=== PATIENT | male | born 1960 | race African-American/Black ===

== ENCOUNTER 2017-07-16 10:04 | Inpatient (IN) | payer SELFPAY ==
[~2017-07-16] VITALS: Ht 188 cm; Wt 95.3 kg
[2017-07-16] MEDS ORDERED: INSULIN REGULAR (HUMULIN R) 300UNITS/3ML IV ONE ×3 (12:15→17:00)
[2017-07-16] MEDS ORDERED: SODIUM CHLORIDE 0.9% 2,000 ML IV ONE (12:15)
[2017-07-16 12:45] LABS: BASOPHILS % 0.4 % (0.0-2.0); EOSINOPHILS % 0.7 % (0.0-5.0); HEMATOCRIT. 42.1 % (42.0-52.0); HEMOGLOBIN. 14.4 g/dL (14.0-18.0); LYMPHOCYTES % 16.2 % (20.0-50.0); MEAN CORPUSCULAR HEMOGLOBIN 27.8 pg (28.0-32.0); MEAN CORPUSCULAR VOLUME 81.4 fL (80.0-94.0); MEAN PLATELET VOLUME 8.3 fl (7.4-10.4); MONOCYTES % 5.8 % (2.0-8.0); NEUTROPHILS % 76.9 % (40.0-76.0); PLATELET 259 x1000/uL (130-400); RED BLOOD CELL COUNT 5.18 mill/uL (4.7-6.1); RED CELL DISTRIBUTION WIDTH 13.2 % (11.6-14.6)
[2017-07-16 13:03] LABS: CARBON DIOXIDE 31 mEq/L (21-32); CHLORIDE 95 mEq/L (98-107)
[2017-07-16] MEDS ORDERED: LORAZEPAM 2MG/ML CPJ IV ONE (17:00)
[2017-07-16] MEDS ORDERED: SODIUM CHLORIDE 0.9% 1,000 ML IV ONE (17:00)
[2017-07-16] MEDS ORDERED: METFORMIN HCL 500MG TABLET PO ONE (17:00)
[2017-07-16 18:21] LABS: TROPONIN I 0.06 ng/mL (0.00-0.04)
[2017-07-16] MEDS ORDERED: DIPHENHYDRAMINE 50MG/ML VIAL IV PRN (19:00)
[2017-07-16] MEDS ORDERED: MAGNESIUM/ALUMINUM HYDROXIDE/SIMETHICONE 30ML UDC PO PRN (19:00)
[2017-07-16] MEDS ORDERED: ACETAMINOPHEN 325MG TABLET PO PRN (19:00)
[2017-07-16] MEDS ORDERED: ONDANSETRON HCL 4MG/2ML VIAL IV PRN (19:00)
[2017-07-16] MEDS ORDERED: CLONIDINE 0.1MG TABLET PO PRN (19:00)
[2017-07-16] MEDS ORDERED: DOCUSATE SODIUM 100MG CAPSULE PO PRN (19:00)
[2017-07-16] MEDS ORDERED: GUAIFENESIN 200MG/10ML SUGAR FREE UDC PO PRN (19:00)
[2017-07-16] MEDS ORDERED: IPRATROPIUM/ALBUTEROL 0.5-3(2.5)MG/3ML NEB INH PRN (19:00)
[2017-07-16] MEDS ORDERED: LORAZEPAM 0.5MG TABLET PO PRN (19:00)
[2017-07-16] MEDS ORDERED: MORPHINE SULFATE 2 MG/ML CPJ (NOT FOR IM USE) IV PRN (19:30)
[2017-07-16] MEDS ORDERED: HYDROCODONE/ACETAMINOPHEN 5/325MG TABLET PO PRN (19:30)
[2017-07-16] MEDS ORDERED: NA PHOS,M-B/NA PHOS,DI-BA ENEMA 118ML PR PRN (20:00)
[2017-07-16 20:05] LABS: CARBON DIOXIDE 26 mEq/L (21-32); CHLORIDE 104 mEq/L (98-107)
[2017-07-16 21:30] VITALS: BP 113/77
[2017-07-16] MEDS: ENOXAPARIN 40MG/0.4ML SYR SUBCUT SCH ×2 (21:34→23:30)
[2017-07-16] MEDS: SODIUM CHLORIDE 0.45% 1,000 ML IV SCH (23:30)
[2017-07-16] MEDS ORDERED: DEXTROSE 50% WATER 50ML SYRINGE IV PRN (23:30)
[2017-07-17] MEDS: BLOOD SUGAR DIAGNOSTIC STRIP TEST SCH ×4 (06:43→21:00)
[2017-07-17] MEDS: INSULIN LISPRO 100 UNITS/ML SUBCUT SCH ×4 (06:48→22:49)
[2017-07-17 08:00] LABS: BASOPHILS % 0.4 % (0.0-2.0); EOSINOPHILS % 1.5 % (0.0-5.0); HEMATOCRIT. 41.5 % (42.0-52.0); HEMOGLOBIN. 14.1 g/dL (14.0-18.0); LYMPHOCYTES % 24.6 % (20.0-50.0); MEAN CORPUSCULAR HEMOGLOBIN 27.9 pg (28.0-32.0); MONOCYTES % 6.4 % (2.0-8.0); NEUTROPHILS % 67.1 % (40.0-76.0); PLATELET 249 x1000/uL (130-400); RED BLOOD CELL COUNT 5.06 mill/uL (4.7-6.1); RED CELL DISTRIBUTION WIDTH 13.1 % (11.6-14.6)
[2017-07-17 08:23] LABS: CHLORIDE 102 mEq/L (98-107)
[2017-07-17 08:35] LABS: CARBON DIOXIDE 25 mEq/L (21-32); HDL CHOLESTEROL 43 mg/dL (40-59); LDL CHOLESTEROL 205 mg/dL (5-100); T4 FREE 1.05 ng/dL (0.76-1.46)
[2017-07-17] MEDS ORDERED: ASPIRIN 81MG EC TABLET PO SCH (09:00)
[2017-07-17] MEDS ORDERED: CLONIDINE 0.3MG TABLET PO NR (09:11)
[2017-07-17 09:41] VITALS: BP 162/96
[2017-07-17] MEDS: SODIUM CHLORIDE 0.45% 1,000 ML IV SCH ×2 (09:59→22:29)
[2017-07-17] MEDS: AMLODIPINE 10MG TABLET PO SCH (10:39)
[2017-07-17] MEDS: ENOXAPARIN 40MG/0.4ML SYR SUBCUT SCH (10:45)
[2017-07-17 11:32] VITALS: BP 152/92
[2017-07-17 15:37] VITALS: BP 114/77
[2017-07-17 18:13] LABS: CREATINE KINASE MB FRACTION 5.9 ng/mL (0.5-3.6)
[2017-07-17 18:40] LABS: TROPONIN I 0.86 ng/mL (0.00-0.04)
[2017-07-17 20:00] VITALS: BP 114/70
[2017-07-17] MEDS: METOPROLOL TARTRATE 25MG TABLET PO SCH (22:45)
[2017-07-18] VITALS: BP 105/59
[2017-07-18 01:07] LABS: CREATINE KINASE MB FRACTION 4.3 ng/mL (0.5-3.6)
[2017-07-18 01:56] LABS: TROPONIN I 0.85 ng/mL (0.00-0.04)
[2017-07-18 04:00] VITALS: BP 143/86
[2017-07-18] MEDS: BLOOD SUGAR DIAGNOSTIC STRIP TEST SCH ×4 (06:37→21:17)
[2017-07-18 08:00] VITALS: BP 177/105
[2017-07-18 08:03] LABS: CREATINE KINASE MB FRACTION 3.3 ng/mL (0.5-3.6)
[2017-07-18 08:07] LABS: TROPONIN I 0.8 ng/mL (0.00-0.04)
[2017-07-18] MEDS ORDERED: CLOPIDOGREL 75MG TABLET PO SCH (08:15)
[2017-07-18] MEDS ORDERED: ASPIRIN 81MG TABLET PO SCH (09:00)
[2017-07-18] MEDS: AMLODIPINE 10MG TABLET PO SCH (10:04)
[2017-07-18] MEDS: ASPIRIN 81MG TABLET PO SCH (10:04)
[2017-07-18] MEDS: METOPROLOL TARTRATE 25MG TABLET PO SCH ×2 (10:05→21:15)
[2017-07-18] MEDS: ENOXAPARIN 40MG/0.4ML SYR SUBCUT SCH (10:05)
[2017-07-18] MEDS: INSULIN LISPRO 100 UNITS/ML SUBCUT SCH ×4 (10:09→21:17)
[2017-07-18] MEDS: SODIUM CHLORIDE 0.45% 1,000 ML IV SCH ×2 (10:54→23:29)
[2017-07-18 11:49] LABS: PROTHROMBIN TIME 10.2 sec (9.4-11.6)
[2017-07-18 12:00] VITALS: BP 165/95
[2017-07-18] MEDS ORDERED: INSULIN REGULAR (HUMULIN R) 300UNITS/3ML SUBCUT ONE (12:45)
[2017-07-18] MEDS ORDERED: INSULIN LISPRO 100 UNITS/ML SUBCUT NR (12:55)
[2017-07-18] MEDS: CLONIDINE 0.3MG TABLET PO PRN (13:18)
[2017-07-18 16:00] VITALS: BP 104/66
[2017-07-18 20:15] VITALS: BP 116/72
[2017-07-18] MEDS: ENOXAPARIN 100MG/ML SYR SUBCUT SCH (21:15)
[2017-07-18] MEDS: LORAZEPAM 0.5MG TABLET PO PRN (21:30)
[2017-07-19] VITALS (7 sets, daily range): BP systolic 122–173; BP diastolic 78–105
[2017-07-19] MEDS: CLONIDINE 0.3MG TABLET PO PRN (04:51)
[2017-07-19] MEDS: BLOOD SUGAR DIAGNOSTIC STRIP TEST SCH ×4 (06:25→21:00)
[2017-07-19] MEDS: INSULIN LISPRO 100 UNITS/ML SUBCUT SCH ×4 (08:06→22:37)
[2017-07-19] MEDS: CLOPIDOGREL 75MG TABLET PO SCH (08:07)
[2017-07-19] MEDS: METOPROLOL TARTRATE 25MG TABLET PO SCH ×2 (08:08→22:35)
[2017-07-19] MEDS: ASPIRIN 81MG TABLET PO SCH (08:09)
[2017-07-19] MEDS: AMLODIPINE 10MG TABLET PO SCH (08:09)
[2017-07-19] MEDS: ENOXAPARIN 100MG/ML SYR SUBCUT SCH ×2 (08:09→22:36)
[2017-07-19] MEDS ORDERED: REGADENOSON 0.4 MG/5 ML IV ONE (09:15)
[2017-07-19] MEDS: SODIUM CHLORIDE 0.45% 1,000 ML IV SCH (10:40)
[2017-07-19] MEDS: LORAZEPAM 0.5MG TABLET PO PRN (23:00)
[2017-07-20] VITALS: BP 173/100
[2017-07-20] MEDS: SODIUM CHLORIDE 0.45% 1,000 ML IV SCH ×3 (00:22→21:38)
[2017-07-20] MEDS: CLONIDINE 0.3MG TABLET PO PRN ×2 (00:22→21:43)
[2017-07-20 04:00] VITALS: BP 130/84
[2017-07-20] MEDS: BLOOD SUGAR DIAGNOSTIC STRIP TEST SCH ×4 (07:20→21:38)
[2017-07-20 08:24] VITALS: BP 149/89
[2017-07-20] MEDS: METOPROLOL TARTRATE 25MG TABLET PO SCH ×2 (09:20→21:38)
[2017-07-20] MEDS: CLOPIDOGREL 75MG TABLET PO SCH (09:20)
[2017-07-20] MEDS: ASPIRIN 81MG TABLET PO SCH (09:20)
[2017-07-20] MEDS: AMLODIPINE 10MG TABLET PO SCH (09:21)
[2017-07-20] MEDS: ENOXAPARIN 100MG/ML SYR SUBCUT SCH ×2 (09:21→21:37)
[2017-07-20] MEDS: INSULIN LISPRO 100 UNITS/ML SUBCUT SCH ×5 (09:26→21:39)
[2017-07-20 12:45] VITALS: BP 119/76
[2017-07-20 16:05] VITALS: BP 134/81
[2017-07-20 20:00] VITALS: BP 185/97
[2017-07-21] VITALS: BP 145/87
[2017-07-21 04:00] VITALS: BP 145/95
[2017-07-21] MEDS: BLOOD SUGAR DIAGNOSTIC STRIP TEST SCH ×2 (07:16→12:58)
[2017-07-21] MEDS: INSULIN LISPRO 100 UNITS/ML SUBCUT SCH ×2 (07:50→13:05)
[2017-07-21 08:00] VITALS: BP 153/97
[2017-07-21] MEDS: ENOXAPARIN 100MG/ML SYR SUBCUT SCH (09:00)
[2017-07-21] MEDS ORDERED: REGADENOSON 0.4 MG/5 ML IV ONE (09:03)
[2017-07-21 12:00] VITALS: BP 156/87
[2017-07-21 12:33] VITALS: BP 156/87
[2017-07-21] MEDS: AMLODIPINE 10MG TABLET PO SCH (13:06)
[2017-07-21] MEDS: CLOPIDOGREL 75MG TABLET PO SCH (13:06)
[2017-07-21] MEDS: ASPIRIN 81MG TABLET PO SCH (13:07)
[2017-07-21] MEDS: METOPROLOL TARTRATE 25MG TABLET PO SCH (13:07)
== END 2017-07-21 15:10 | disposition home or self-care (01) | DRG 420 ==
LOC: EDBD 10:04 → ER 10:44 → 6WST 17:57 → EDBEDREQ 18:01 → ENRESERV 19:32 → 6WST 21:29
PROVIDERS: ADMIT Internal Medicine; ATTEND Internal Medicine
DX: E11.65 Type 2 diabetes mellitus with hyperglycemia (principal); E87.0 Hyperosmolality and hypernatremia; E86.0 Dehydration; E78.5 Hyperlipidemia, unspecified; I10 Essential (primary) hypertension; Z96.649 Presence of unspecified artificial hip joint; I47.1 Supraventricular tachycardia; Z91.14 Patient's other noncompliance with medication regimen; Z72.89 Other problems related to lifestyle
CPT/HCPCS: 36415; 70450; 71010; 78452; 80048; 80053; 80061; 82550; 82553; 82962; 83036; 83880; 84439; 84443; 84484; 85025; 85379; 85610; 93005; 93306; 96361; 96374; 96376; 99285; A9500; J1200; J1650; J1815; J2060; J2785; J7030; J7040

== ENCOUNTER 2019-01-12 13:32 | Emergency (ER) | payer MEDICAID ==
[~2019-01-12] VITALS: Ht 188 cm; Wt 100.0 kg
[2019-01-12] MEDS ORDERED: FUROSEMIDE 40MG/4ML VIAL IV ONE (14:45)
[2019-01-12 14:57] LABS: BASOPHILS % 1.1 % (0.0-2.0); EOSINOPHILS % 1.8 % (0.0-5.0); HEMATOCRIT. 36.1 % (42.0-52.0); HEMOGLOBIN. 12.1 g/dL (14.0-18.0); LYMPHOCYTES % 17.8 % (20.0-50.0); MEAN CORPUSCULAR HEMOGLOBIN 27.5 pg (28.0-32.0); MEAN PLATELET VOLUME 7.9 fl (7.4-10.4); MONOCYTES % 6.8 % (2.0-8.0); NEUTROPHILS % 72.5 % (40.0-76.0); PLATELET 266 x1000/uL (130-400); RED CELL DISTRIBUTION WIDTH 14.1 % (11.6-14.6)
[2019-01-12 15:02] LABS: CHLORIDE 105 mEq/L (98-107)
[2019-01-12 15:04] LABS: INR 1.1; PROTHROMBIN TIME 11.1 sec (9.6-11.0)
[2019-01-12 15:10] LABS: CREATINE KINASE 253 IU/L (39-308)
[2019-01-12 17:18] LABS: CLARITY URINE CLEAR (CLEAR); COLOR URINE YELLOW (YELLOW); KETONES URINE NEGATIVE (NEGATIVE); LEUKOCYTE ESTERASE URINE NEGATIVE (NEGATIVE); NITRITE URINE NEGATIVE (NEGATIVE); OCCULT BLOOD URINE 2+ (NEGATIVE); PROTEIN URINE 3+ (NEGATIVE); SPECIFIC GRAVITY URINE 1.015 (1.005-1.030)
[2019-01-12] MEDS ORDERED: LISINOPRIL 10MG TABLET PO ONE (18:45)
[2019-01-12] MEDS ORDERED: METOPROLOL TARTRATE 50MG TABLET PO ONE (18:45)
[2019-01-13] MEDS ORDERED: METOPROLOL TARTRATE 50MG TABLET PO ONE (06:15)
[2019-01-13] MEDS ORDERED: LISINOPRIL 10MG TABLET PO ONE (06:15)
[2019-01-13 10:56] VITALS: BP 177/104
== END 2019-01-13 11:02 | disposition home or self-care (01) ==
LOC: ER 13:32 → CANBEDREQ 17:14 → ER 01-13 11:02
DX: R60.0 Localized edema (principal); R53.83 Other fatigue; I10 Essential (primary) hypertension; E11.9 Type 2 diabetes mellitus without complications; Z96.649 Presence of unspecified artificial hip joint; Z59.0 Homelessness
CPT/HCPCS: 36415; 71045; 80053; 81003; 82550; 83690; 83880; 84484; 85025; 85610; 93005; 93971; 96374; 99284; J1940; 99285

== ENCOUNTER 2019-04-26 10:43 | Inpatient (IN) | payer MEDICAID ==
[~2019-04-26] VITALS: Ht 188 cm; Wt 98.4 kg
[2019-04-26 11:47] LABS: CHLORIDE 97 mEq/L (98-107)
[2019-04-26 11:48] LABS: HEMATOCRIT. 29.9 % (42.0-52.0); MEAN CORPUSCULAR HEMOGLOBIN 27.2 pg (28.0-32.0); MEAN CORPUSCULAR VOLUME 80.9 fL (80.0-94.0); MEAN PLATELET VOLUME 7.9 fl (7.4-10.4); PLATELET 452 x1000/uL (130-400); RED BLOOD CELL COUNT 3.69 mill/uL (4.7-6.1)
[2019-04-26 11:50] LABS: INR 1.1; PROTHROMBIN TIME 11.5 sec (9.6-11.0)
[2019-04-26 12:17] LABS: PLATELET ESTIMATE INCREASED
[2019-04-26] MEDS ORDERED: ACETAMINOPHEN 325MG TABLET PO ONE (13:45)
[2019-04-26] MEDS ORDERED: KETOROLAC 15MG/ML VIAL IV ONE (13:45)
[2019-04-26 14:28] LABS: CLARITY URINE TURBID (CLEAR); COLOR URINE DARK YELLOW (YELLOW); KETONES URINE TRACE (NEGATIVE); LEUKOCYTE ESTERASE URINE NEGATIVE (NEGATIVE); NITRITE URINE NEGATIVE (NEGATIVE); OCCULT BLOOD URINE 1+ (NEGATIVE); PROTEIN URINE 3+ (NEGATIVE); SPECIFIC GRAVITY URINE 1.017 (1.005-1.030)
[2019-04-26] MEDS ORDERED: ACETAMINOPHEN 325MG TABLET PO PRN (16:00)
[2019-04-26] MEDS ORDERED: ONDANSETRON HCL 4MG/2ML INJ IV PRN (16:00)
[2019-04-26] MEDS: PIPERACILLIN/TAZ 3.375G PREMIX 50 ML IV SCH ×3 (16:15→17:33)
[2019-04-26] MEDS: PIPERACILLIN/TAZOBACTAM 3.375 G in DEXT 5% WATER 100 ML IV SCH ×2 (16:28→16:57)
[2019-04-26 17:50] VITALS: BP 161/92
[2019-04-26 19:44] LABS: *AMPHETAMINES SCREEN URINE NEGATIVE (NEGATIVE); *BARBITURATES SCREEN URINE NEGATIVE (NEGATIVE); *BENZODIAZEPINES SCREEN URINE NEGATIVE (NEGATIVE); *COCAINE SCREEN URINE NEGATIVE (NEGATIVE)
[2019-04-26 19:45] LABS: CANNABINOID URINE SCREEN PRESUMTIVE POSITIVE (NEGATIVE); METHADONE URINE SCREEN NEGATIVE (NEGATIVE); OPIATES URINE SCREEN NEGATIVE (NEGATIVE); PHENCYCLIDINE URINE SCREEN NEGATIVE (NEGATIVE)
[2019-04-26 20:00] VITALS: BP 187/111
[2019-04-26] MEDS ORDERED: VANCOMYCIN 1,750 MG in DEXT 5% WATER 250 ML IV NR (21:00)
[2019-04-26] MEDS ORDERED: POTA25TA8 MT (23:46)
[2019-04-26] MEDS ORDERED: METO-396 MT (23:46)
[2019-04-26] MEDS ORDERED: LISI10TA5 MT (23:46)
[2019-04-26] MEDS ORDERED: METF-416 MT (23:46)
[2019-04-26] MEDS ORDERED: FURO-151 MT (23:46)
[2019-04-27] VITALS: BP 115/62
[2019-04-27] MEDS ORDERED: DEXTROSE 50% WATER 50ML SYRINGE IV PRN
[2019-04-27] MEDS: AMLODIPINE 5MG TABLET PO SCH ×3 (01:17→22:39)
[2019-04-27] MEDS: ATORVASTATIN CALCIUM 40MG TABLET PO SCH ×2 (01:17→22:40)
[2019-04-27] MEDS: HYDROCODONE/ACETAMINOPHEN 10/325MG TABLET PO PRN ×2 (01:18→23:00)
[2019-04-27 04:00] VITALS: BP 126/73
[2019-04-27] MEDS: BLOOD SUGAR DIAGNOSTIC STRIP TEST SCH ×4 (06:08→21:00)
[2019-04-27] MEDS: INSULIN LISPRO 100 UNITS/ML SUBCUT SCH ×4 (06:15→21:00)
[2019-04-27 06:36] LABS: HEMATOCRIT. 27.7 % (42.0-52.0); HEMOGLOBIN. 9.2 g/dL (14.0-18.0); MEAN CORPUSCULAR HEMOGLOBIN 26.8 pg (28.0-32.0); MEAN CORPUSCULAR VOLUME 80.2 fL (80.0-94.0); MEAN PLATELET VOLUME 7.4 fl (7.4-10.4); PLATELET 459 x1000/uL (130-400); RED BLOOD CELL COUNT 3.45 mill/uL (4.7-6.1); RED CELL DISTRIBUTION WIDTH 15.5 % (11.6-14.6)
[2019-04-27 08:00] VITALS: BP 155/92
[2019-04-27] MEDS: PIPERACILLIN/TAZOBACTAM 3.375 G in DEXT 5% WATER 100 ML IV SCH ×3 (08:30→20:00)
[2019-04-27] MEDS: ENOXAPARIN 30MG/0.3ML SYR SUBCUT SCH ×2 (08:30→22:41)
[2019-04-27] MEDS: METOPROLOL TARTRATE 25MG TABLET PO SCH ×2 (08:31→22:40)
[2019-04-27] MEDS ORDERED: LISINOPRIL 10MG TABLET PO SCH (09:00)
[2019-04-27] MEDS ORDERED: MEDICATION NOT ON FORMULARY EA (Metoprolol Succinate 1 TAB) MT SCH (09:00)
[2019-04-27] MEDS ORDERED: FUROSEMIDE 40MG TABLET PO SCH (09:00)
[2019-04-27] MEDS ORDERED: ENOXAPARIN 40MG/0.4ML SYR SUBCUT SCH (09:00)
[2019-04-27] MEDS: POTASSIUM BICARB/CIT ACID 25 MEQ TABLET.EFF PO SCH (09:00)
[2019-04-27] MEDS ORDERED: FUROSEMIDE 40MG/4ML VIAL IVP SCH (09:00)
[2019-04-27] MEDS ORDERED: VANCOMYCIN 1250MG in DEXTROSE 5% WATER 250ML IV SCH ×2 (10:30→14:00)
[2019-04-27 11:59] VITALS: BP 168/98
[2019-04-27] MEDS ORDERED: BACITRACIN 15GM TUBE TOP ONE (15:03)
[2019-04-27] MEDS ORDERED: BUPIVACAINE HCL/EPINEPHRINE 0.5%/0.0005 30ML ONE (15:04)
[2019-04-27] MEDS ORDERED: LIDOCAINE HCL 1% 20ML VIAL (Pyxis) INJ ONE (15:04)
[2019-04-27] MEDS ORDERED: BACITRACIN 50,000 UNITS/VIAL ONE (15:05)
[2019-04-27 16:00] VITALS: BP 186/106
[2019-04-27] MEDS: DEXT 5%/0.9% NACL 1,000 ML IV SCH (16:20)
[2019-04-27] MEDS: CLONIDINE 0.1MG TABLET PO PRN (16:26)
[2019-04-27] MEDS ORDERED: PROPOFOL 200MG/20ML VIAL IV ONE (18:15)
[2019-04-27] MEDS ORDERED: MIDAZOLAM HCL 2 MG/2 ML VIAL ONE (18:16)
[2019-04-27] MEDS ORDERED: LIDOCAINE HCL/PF 1% 10 MG/ML 5ML VIAL ONE (18:54)
[2019-04-27] MEDS ORDERED: METOPROLOL TARTRATE 5MG/5ML VIAL IV ONE (19:03)
[2019-04-27] MEDS ORDERED: BUPIVACAINE HCL/PF 0.5% (5MG/ML) 10ML ONE (19:04)
[2019-04-27] MEDS ORDERED: HYDRALAZINE 20MG/ML VIAL ONE (19:20)
[2019-04-27 19:39] LABS: PLATELET ESTIMATE INCREASED
[2019-04-27 20:00] VITALS: BP 128/61
[2019-04-27] MEDS: CLONIDINE 0.1MG TABLET PO SCH (20:20)
[2019-04-27] MEDS: HYDRALAZINE HCL 50MG TABLET PO SCH (22:40)
[2019-04-27] MEDS: INSULIN GLARGINE UD 100 UNITS/ML SYR SUBCUT SCH (22:49)
[2019-04-28] VITALS: BP 93/50
[2019-04-28] MEDS: PIPERACILLIN/TAZOBACTAM 3.375 G in DEXT 5% WATER 100 ML IV SCH ×4 (01:40→21:34)
[2019-04-28 04:00] VITALS: BP 133/78
[2019-04-28] MEDS: CLONIDINE 0.1MG TABLET PO SCH (06:36)
[2019-04-28] MEDS: BLOOD SUGAR DIAGNOSTIC STRIP TEST SCH ×4 (06:59→21:58)
[2019-04-28] MEDS: INSULIN LISPRO 100 UNITS/ML SUBCUT SCH ×4 (07:00→21:00)
[2019-04-28 07:10] LABS: HEMATOCRIT. 29.2 % (42.0-52.0); HEMOGLOBIN. 9.6 g/dL (14.0-18.0); MEAN CORPUSCULAR HEMOGLOBIN 26.4 pg (28.0-32.0); MEAN CORPUSCULAR VOLUME 80.1 fL (80.0-94.0); MEAN PLATELET VOLUME 7.5 fl (7.4-10.4); PLATELET 506 x1000/uL (130-400); RED BLOOD CELL COUNT 3.64 mill/uL (4.7-6.1); RED CELL DISTRIBUTION WIDTH 14.9 % (11.6-14.6)
[2019-04-28 08:00] VITALS: BP 103/54
[2019-04-28] MEDS: AMLODIPINE 5MG TABLET PO SCH ×2 (09:00→21:39)
[2019-04-28] MEDS: POTASSIUM BICARB/CIT ACID 25 MEQ TABLET.EFF PO SCH (09:19)
[2019-04-28] MEDS: HYDRALAZINE HCL 50MG TABLET PO SCH ×2 (09:19→21:41)
[2019-04-28] MEDS: METOPROLOL TARTRATE 25MG TABLET PO SCH (09:19)
[2019-04-28] MEDS: VANCOMYCIN 1250MG in DEXTROSE 5% WATER 250ML IV SCH (09:20)
[2019-04-28] MEDS: INSULIN GLARGINE UD 100 UNITS/ML SYR SUBCUT SCH ×2 (09:23→22:26)
[2019-04-28] MEDS: ENOXAPARIN 30MG/0.3ML SYR SUBCUT SCH ×2 (09:50→21:41)
[2019-04-28 12:00] VITALS: BP 124/71
[2019-04-28 13:07] LABS: PLATELET ESTIMATE SLIGHTLY INCREASED
[2019-04-28] MEDS: HYDROCODONE/ACETAMINOPHEN 10/325MG TABLET PO PRN ×2 (15:35→21:41)
[2019-04-28 16:00] VITALS: BP 146/81
[2019-04-28 20:00] VITALS: BP 168/94
[2019-04-28] MEDS: ATORVASTATIN CALCIUM 40MG TABLET PO SCH (21:39)
[2019-04-28] MEDS: CARVEDILOL 6.25 MG TABLET PO SCH (21:40)
[2019-04-29] VITALS: BP 102/56
[2019-04-29] MEDS: DEXT 5%/0.9% NACL 1,000 ML IV SCH (01:00)
[2019-04-29] MEDS: PIPERACILLIN/TAZOBACTAM 3.375 G in DEXT 5% WATER 100 ML IV SCH ×4 (01:01→20:03)
[2019-04-29] MEDS: VANCOMYCIN 1250MG in DEXTROSE 5% WATER 250ML IV SCH (03:11)
[2019-04-29 04:00] VITALS: BP 145/85
[2019-04-29] MEDS: HYDROCODONE/ACETAMINOPHEN 10/325MG TABLET PO PRN ×3 (04:06→20:25)
[2019-04-29] MEDS: BLOOD SUGAR DIAGNOSTIC STRIP TEST SCH ×4 (06:18→20:26)
[2019-04-29 06:49] LABS: HEMATOCRIT. 25.9 % (42.0-52.0); HEMOGLOBIN. 8.6 g/dL (14.0-18.0); MEAN CORPUSCULAR HEMOGLOBIN 26.8 pg (28.0-32.0); MEAN CORPUSCULAR VOLUME 81.1 fL (80.0-94.0); MEAN PLATELET VOLUME 7.3 fl (7.4-10.4); PLATELET 478 x1000/uL (130-400); RED CELL DISTRIBUTION WIDTH 14.7 % (11.6-14.6)
[2019-04-29] MEDS: INSULIN LISPRO 100 UNITS/ML SUBCUT SCH ×4 (07:01→20:26)
[2019-04-29 08:00] VITALS: BP 123/62
[2019-04-29] MEDS: POTASSIUM BICARB/CIT ACID 25 MEQ TABLET.EFF PO SCH (08:25)
[2019-04-29] MEDS: ENOXAPARIN 30MG/0.3ML SYR SUBCUT SCH ×2 (08:25→20:24)
[2019-04-29] MEDS: CARVEDILOL 6.25 MG TABLET PO SCH ×2 (08:27→20:24)
[2019-04-29] MEDS: HYDRALAZINE HCL 50MG TABLET PO SCH ×2 (08:27→20:25)
[2019-04-29] MEDS: AMLODIPINE 5MG TABLET PO SCH ×2 (08:27→20:25)
[2019-04-29] MEDS: INSULIN GLARGINE UD 100 UNITS/ML SYR SUBCUT SCH ×2 (09:56→22:54)
[2019-04-29 10:02] LABS: PLATELET ESTIMATE INCREASED
[2019-04-29 12:00] VITALS: BP 127/71
[2019-04-29 16:00] VITALS: BP 140/83
[2019-04-29 20:00] VITALS: BP 107/61
[2019-04-29] MEDS: ATORVASTATIN CALCIUM 40MG TABLET PO SCH (20:24)
[2019-04-30] VITALS: BP 127/73
[2019-04-30] MEDS: PIPERACILLIN/TAZOBACTAM 3.375 G in DEXT 5% WATER 100 ML IV SCH ×2 (01:34→08:39)
[2019-04-30 04:00] VITALS: BP 127/73
[2019-04-30] MEDS: INSULIN LISPRO 100 UNITS/ML SUBCUT SCH ×4 (06:28→20:53)
[2019-04-30] MEDS: BLOOD SUGAR DIAGNOSTIC STRIP TEST SCH ×4 (06:28→21:07)
[2019-04-30 08:20] VITALS: BP 151/89
[2019-04-30] MEDS: AMLODIPINE 5MG TABLET PO SCH ×2 (08:39→20:54)
[2019-04-30] MEDS: CARVEDILOL 6.25 MG TABLET PO SCH ×2 (08:39→20:54)
[2019-04-30] MEDS: HYDRALAZINE HCL 50MG TABLET PO SCH ×2 (08:39→20:55)
[2019-04-30] MEDS: ENOXAPARIN 40MG/0.4ML SYR SUBCUT SCH (08:40)
[2019-04-30] MEDS: POTASSIUM BICARB/CIT ACID 25 MEQ TABLET.EFF PO SCH (08:42)
[2019-04-30] MEDS: INSULIN GLARGINE UD 100 UNITS/ML SYR SUBCUT SCH (10:00)
[2019-04-30 12:00] VITALS: BP 143/78
[2019-04-30] MEDS: HYDROCODONE/ACETAMINOPHEN 10/325MG TABLET PO PRN ×2 (14:20→20:09)
[2019-04-30 16:00] VITALS: BP 145/87
[2019-04-30 16:34] LABS: HEMATOCRIT. 26.4 % (42.0-52.0); HEMOGLOBIN. 8.7 g/dL (14.0-18.0); MEAN CORPUSCULAR HEMOGLOBIN 26.6 pg (28.0-32.0); MEAN CORPUSCULAR VOLUME 80.4 fL (80.0-94.0); MEAN PLATELET VOLUME 7.1 fl (7.4-10.4); PLATELET 524 x1000/uL (130-400); RED BLOOD CELL COUNT 3.29 mill/uL (4.7-6.1); RED CELL DISTRIBUTION WIDTH 15.4 % (11.6-14.6)
[2019-04-30 18:08] LABS: PLATELET ESTIMATE INCREASED
[2019-04-30 20:00] VITALS: BP 137/81
[2019-04-30] MEDS: ATORVASTATIN CALCIUM 40MG TABLET PO SCH (20:54)
[2019-04-30] MEDS ORDERED: SODIUM POLYSTYRENE SULFONATE 15 G/60 ML BOT PO NR (21:00)
[2019-04-30] MEDS: SODIUM CHLORIDE 0.9% 1,000 ML IV SCH (21:09)
[2019-05-01] VITALS: BP 150/88
[2019-05-01] MEDS: HYDROCODONE/ACETAMINOPHEN 10/325MG TABLET PO PRN ×2 (00:13→20:49)
[2019-05-01 04:00] VITALS: BP 136/77
[2019-05-01] MEDS: BLOOD SUGAR DIAGNOSTIC STRIP TEST SCH ×4 (06:15→20:52)
[2019-05-01] MEDS: INSULIN LISPRO 100 UNITS/ML SUBCUT SCH ×4 (06:15→20:57)
[2019-05-01 07:01] LABS: HEMATOCRIT. 23.4 % (42.0-52.0); HEMOGLOBIN. 7.9 g/dL (14.0-18.0); MEAN CORPUSCULAR HEMOGLOBIN 27.3 pg (28.0-32.0); MEAN CORPUSCULAR VOLUME 80.8 fL (80.0-94.0); MEAN PLATELET VOLUME 7.2 fl (7.4-10.4); PLATELET 478 x1000/uL (130-400); RED CELL DISTRIBUTION WIDTH 15.2 % (11.6-14.6)
[2019-05-01] MEDS ORDERED: LIDOCAINE HCL 1% 20ML VIAL (Pyxis) INJ ONE (07:09)
[2019-05-01 08:00] VITALS: BP 154/90
[2019-05-01] MEDS: HYDRALAZINE HCL 50MG TABLET PO SCH ×2 (08:42→20:47)
[2019-05-01] MEDS: CARVEDILOL 6.25 MG TABLET PO SCH ×2 (08:42→20:48)
[2019-05-01] MEDS: ENOXAPARIN 40MG/0.4ML SYR SUBCUT SCH (08:45)
[2019-05-01] MEDS: AMLODIPINE 5MG TABLET PO SCH ×2 (08:45→20:47)
[2019-05-01 09:48] LABS: PLATELET ESTIMATE INCREASED
[2019-05-01 12:00] VITALS: BP 148/78
[2019-05-01] MEDS ORDERED: SODIUM POLYSTYRENE SULFONATE 15 G/60 ML BOT PO SCH (12:00)
[2019-05-01] MEDS: INSULIN GLARGINE UD 100 UNITS/ML SYR SUBCUT SCH (12:24)
[2019-05-01] MEDS: SODIUM CHLORIDE 0.9% 1,000 ML IV SCH (12:26)
[2019-05-01] MEDS ORDERED: VANCOMYCIN 1 G PREMIX 200 ML IV SCH (13:00)
[2019-05-01 16:00] VITALS: BP 148/77
[2019-05-01 20:00] VITALS: BP 154/84
[2019-05-01] MEDS: ATORVASTATIN CALCIUM 40MG TABLET PO SCH (20:47)
[2019-05-02] VITALS: BP 140/82
[2019-05-02 04:00] VITALS: BP 163/90
[2019-05-02] MEDS: CLONIDINE 0.1MG TABLET PO PRN (04:31)
[2019-05-02] MEDS: SODIUM CHLORIDE 0.9% 1,000 ML IV SCH ×3 (04:38→21:41)
[2019-05-02] MEDS: HYDROCODONE/ACETAMINOPHEN 10/325MG TABLET PO PRN ×3 (04:56→21:52)
[2019-05-02] MEDS: BLOOD SUGAR DIAGNOSTIC STRIP TEST SCH ×4 (06:19→21:42)
[2019-05-02] MEDS: INSULIN LISPRO 100 UNITS/ML SUBCUT SCH ×4 (06:19→21:00)
[2019-05-02 08:27] VITALS: BP 127/76
[2019-05-02] MEDS: ENOXAPARIN 30MG/0.3ML SYR SUBCUT SCH (08:33)
[2019-05-02] MEDS: HYDRALAZINE HCL 50MG TABLET PO SCH ×2 (08:33→21:40)
[2019-05-02] MEDS: CARVEDILOL 6.25 MG TABLET PO SCH ×2 (08:33→21:41)
[2019-05-02] MEDS: AMLODIPINE 5MG TABLET PO SCH ×2 (08:33→21:40)
[2019-05-02] MEDS: INSULIN GLARGINE UD 100 UNITS/ML SYR SUBCUT SCH (10:19)
[2019-05-02 12:00] VITALS: BP 123/72
[2019-05-02 12:59] LABS: HEPATITIS B SURFACE ANTIGEN NEGATIVE
[2019-05-02 13:28] LABS: HEPATITIS A AB IGM NEGATIVE (NEGATIVE)
[2019-05-02 20:00] VITALS: BP 162/93
[2019-05-02] MEDS: ATORVASTATIN CALCIUM 40MG TABLET PO SCH (21:39)
[2019-05-03] VITALS: BP 131/67
[2019-05-03 04:00] VITALS: BP 118/73
[2019-05-03] MEDS: SODIUM CHLORIDE 0.9% 1,000 ML IV SCH ×2 (06:08→13:49)
[2019-05-03] MEDS: BLOOD SUGAR DIAGNOSTIC STRIP TEST SCH ×3 (06:43→17:10)
[2019-05-03] MEDS: INSULIN LISPRO 100 UNITS/ML SUBCUT SCH ×3 (06:43→17:40)
[2019-05-03 06:58] LABS: BASOPHILS % 0.4 % (0.0-2.0); EOSINOPHILS % 1.3 % (0.0-5.0); HEMATOCRIT. 24.8 % (42.0-52.0); HEMOGLOBIN. 8.2 g/dL (14.0-18.0); LYMPHOCYTES % 7.9 % (20.0-50.0); MEAN CORPUSCULAR VOLUME 81.1 fL (80.0-94.0); MEAN PLATELET VOLUME 7.1 fl (7.4-10.4); MONOCYTES % 7.5 % (2.0-8.0); NEUTROPHILS % 82.9 % (40.0-76.0); PLATELET 507 x1000/uL (130-400); RED BLOOD CELL COUNT 3.06 mill/uL (4.7-6.1); RED CELL DISTRIBUTION WIDTH 15.3 % (11.6-14.6)
[2019-05-03 08:00] VITALS: BP 160/87
[2019-05-03] MEDS: ENOXAPARIN 30MG/0.3ML SYR SUBCUT SCH (09:58)
[2019-05-03] MEDS: AMLODIPINE 5MG TABLET PO SCH ×2 (09:58→20:41)
[2019-05-03] MEDS: CARVEDILOL 6.25 MG TABLET PO SCH ×2 (09:58→20:39)
[2019-05-03] MEDS: HYDRALAZINE HCL 50MG TABLET PO SCH ×2 (09:58→20:40)
[2019-05-03] MEDS: INSULIN GLARGINE UD 100 UNITS/ML SYR SUBCUT SCH (09:58)
[2019-05-03 12:00] VITALS: BP 158/87
[2019-05-03] MEDS ORDERED: VANCOMYCIN 1 G PREMIX 200 ML IV NR (13:00)
[2019-05-03] MEDS: HYDROCODONE/ACETAMINOPHEN 10/325MG TABLET PO PRN (13:51)
[2019-05-03 16:00] VITALS: BP 129/67
[2019-05-03 20:00] VITALS: BP 130/76
[2019-05-04 09:09] LABS: COMPLEMENT C3 162 mg/dL (82-167)
[2019-05-04 13:10] LABS: ANTI-NUCLEAR ANTIBODIES DIRECT Negative (Negative)
== END 2019-05-03 20:40 | DRG 710 ==
LOC: ER 10:43 → 8WST 14:13 → ENRESERV 16:30
PROVIDERS: ADMIT Internal Medicine; ATTEND Internal Medicine
PROC: 0Q9M0ZZ Drainage of Left Tarsal, Open Approach (ICD-10-PCS; principal; 2019-04-27)
PROC: 0JBR0ZZ Excision of Left Foot Subcutaneous Tissue and Fascia, Open Approach (ICD-10-PCS; 2019-04-27)
PROC: 02HV33Z Insertion of Infusion Device into Superior Vena Cava, Percutaneous Approach (ICD-10-PCS; 2019-05-01)
PROC: B5181ZA Fluoroscopy of Superior Vena Cava using Low Osmolar Contrast, Guidance (ICD-10-PCS; 2019-05-01)
PROC: B548ZZA Ultrasonography of Superior Vena Cava, Guidance (ICD-10-PCS; 2019-05-01)
PROC: 0JBR0ZZ Excision of Left Foot Subcutaneous Tissue and Fascia, Open Approach (ICD-10-PCS; 2019-05-02)
DX: A41.9 Sepsis, unspecified organism (principal); N17.0 Acute kidney failure with tubular necrosis; I50.21 Acute systolic (congestive) heart failure; E43 Unspecified severe protein-calorie malnutrition; E87.1 Hypo-osmolality and hyponatremia; E11.22 Type 2 diabetes mellitus with diabetic chronic kidney disease; L03.116 Cellulitis of left lower limb; E11.42 Type 2 diabetes mellitus with diabetic polyneuropathy; E11.622 Type 2 diabetes mellitus with other skin ulcer; D64.9 Anemia, unspecified; F12.90 Cannabis use, unspecified, uncomplicated; L08.9 Local infection of the skin and subcutaneous tissue, unspecified; N39.0 Urinary tract infection, site not specified; Z59.0 Homelessness; L97.329 Non-pressure chronic ulcer of left ankle with unspecified severity; L97.319 Non-pressure chronic ulcer of right ankle with unspecified severity; E11.621 Type 2 diabetes mellitus with foot ulcer; L97.529 Non-pressure chronic ulcer of other part of left foot with unspecified severity; E78.5 Hyperlipidemia, unspecified; E87.5 Hyperkalemia; I27.20 Pulmonary hypertension, unspecified; I31.3 Pericardial effusion (noninflammatory); I42.9 Cardiomyopathy, unspecified; L02.612 Cutaneous abscess of left foot; N18.9 Chronic kidney disease, unspecified; E87.8 Other disorders of electrolyte and fluid balance, not elsewhere classified; I36.1 Nonrheumatic tricuspid (valve) insufficiency; I13.0 Hypertensive heart and chronic kidney disease with heart failure and stage 1 through stage 4 chronic kidney disease, or unspecified chronic kidney disease; Z96.643 Presence of artificial hip joint, bilateral; Z82.49 Family history of ischemic heart disease and other diseases of the circulatory system; Z83.3 Family history of diabetes mellitus; Z79.84 Long term (current) use of oral hypoglycemic drugs; Z79.899 Other long term (current) drug therapy; Z22.322 Carrier or suspected carrier of Methicillin resistant Staphylococcus aureus; Z68.27 Body mass index [BMI] 27.0-27.9, adult
CPT/HCPCS: 36415; 36573; 71045; 73610; 73700; 76770; 78582; 80048; 80061; 80202; 80305; 81003; 82533; 82550; 82962; 83036; 83605; 83735; 83880; 84145; 84443; 84484; 85651; 86038; 86140; 86160; 86705; 86709; 86803; 87070; 87075; 87077; 87102; 87116; 87340; 93005; 93306; 93923; 97110; 97116; 97162; 99285; A9558; C1725; C1769; J0171; J0360; J1650; J1815; J1885; J1940; J2250; J2543; J2704; J3370; J3490; J7030; J7040; J7042; J7060; A4315